=== PATIENT | female | born 1965 | race Caucasian/White ===

== ENCOUNTER 2021-06-29 15:41 | Emergency (ER) | payer SELFPAY ==
[2021-06-29 17:09] LABS: BASOPHIL 0.2 % (0-2); EOSINOPHIL 0.1 % (0-5); HCT 47.7 % (37.0-47.0); HGB 16.2 g/dl (12.5-16.0); LYMPHOCYTE 8.2 % (15-48); MCH 29.9 pg (25.0-31.0); MONOCYTE 4.3 % (0-12); MPV 11.6 fL (6.0-9.5); NRBC 0; PLT 175 K/uL (150-400); RBC 5.42 M/uL (4.20-5.40); RDW 12.8 % (11.5-14.0)
[2021-06-29 17:17] LABS: ALBUMIN 4.5 g/dL (3.4-5.0); BILIRUBIN - TOTAL 0.6 mg/dL (0.2-1.0); BUN/CREAT RATIO (CALC) 21.7 RATIO; CREATININE 0.46 mg/dL (0.51-0.95); GLOBULIN (CALCULATION) 3.6 g/dL; POTASSIUM 4.1 mmol/L (3.5-5.1); TOTAL PROTEIN 8.1 g/dL (6.4-8.2)
[2021-06-29 18:43] LABS: BILIRUBIN NEGATIVE (NEGATIVE); BLOOD NEGATIVE Ery/uL (NEGATIVE); CLARITY CLEAR (CLEAR); COLOR YELLOW (YELLOW); GLUCOSE (U) NORMAL (NORMAL); LEUKOCYTES NEGATIVE Leu/uL (NEGATIVE); NITRITE NEGATIVE (NEGATIVE); PROTEIN NEGATIVE (NEGATIVE); SPECIFIC GRAVITY <=1.005 (1.001-1.030); UROBILINOGEN 0.2 mg/dL (0.2-1.0)
[2021-06-29 19:25] LABS: LACTIC ACID 1.1 mmol/L (0.4-1.9)
[2021-06-29] MEDS ORDERED: ZOFRAN4 M1 PO (20:17)
[2021-06-29] MEDS ORDERED: NORCO 5-325 TA1 EACH PO (20:17)
[2021-06-29] MEDS ORDERED: METRONIDAZOLE500 MG PO (20:17)
[2021-06-29] MEDS ORDERED: CIPRO500 MG PO (20:17)
== END 2021-06-29 20:38 | disposition home or self-care (01) ==
LOC: FER 15:41
PROVIDERS: Emergency Medicine; Nurse Practitioner Family
DX: K57.32 Diverticulitis of large intestine without perforation or abscess without bleeding (principal); Z88.6 Allergy status to analgesic agent
CPT/HCPCS: 36415; 80053; 81003; 82150; 83605; 83690; 85025; 87040; 93005; J1885; J2405; J7030